=== PATIENT | male | born 1990 | race Caucasian/White ===

== ENCOUNTER 2020-01-13 21:54 | Emergency (ER) | payer OTHER ==
--- NOTE | 2020-01-13 22:26 | EDM.PDOC ---
ED HPI GENERAL MEDICAL PROBLEM - General Chief Complaint: ENT Problem Stated Complaint: HURT EYES WELDING Time Seen by Provider: 01/13/20 22:05 Source of Information: Reports: Patient History Limitations: Reports: No Limitations - History of Present Illness INITIAL COMMENTS - FREE TEXT/NARRATIVE: Patient presented to the ED because of bilateral eye pain. 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 The pain is sharp,8/10,denies any blurry vision. bilateral eyes Pain Score (Numeric/FACES): 4 - Related Data Allergies Allergy/AdvReac Type Severity Reaction Status Date / Time No Known Allergies Allergy Verified 01/13/20 22:12 Home Meds: Home Meds NK [No Known Home Meds] 01/13/20 [History] Social & Family History - Tobacco Use Smoking Status *Q: Former Smoker Used Tobacco, but Quit: Yes Month/Year Tobacco Last Used: 10/2014 - Caffeine Use Caffeine Use: Reports: None Caffeine Use Comment: quit in 2014 - Recreational Drug Use Recreational Drug Use: Yes Drug Use in Last 12 Months: No ED ROS ENT - Review of Systems Review Of Systems: See Below Constitutional: Reports: No Symptoms HEENT: Reports: Eye Pain Respiratory: Reports: No Symptoms Cardiovascular: Reports: No Symptoms GI/Abdominal: Reports: No Symptoms Musculoskeletal: Reports: No Symptoms Skin: Reports: No Symptoms Neurological: Reports: No Symptoms Psychiatric: Reports: No Symptoms ED EXAM, ENT - Physical Exam Exam: See Below Exam Limited By: No Limitations General Appearance: Alert, No Apparent Distress Eye Exam: Right Eye: Other (No FB identified), Bilateral Eye: Conjunctival Injection, PERRL Ears: Normal External Exam, Normal Canal, Hearing Grossly Normal, Normal TMs Nose: Normal Inspection, Normal Mucousa, No Blood Mouth/Throat: Normal Inspection, Normal Gums, Normal Lips Head: Atraumatic, Normocephalic Neck: Normal Inspection, Supple, Non-Tender, Full Range of Motion Respiratory/Chest: No Respiratory Distress, Lungs Clear, Normal Breath Sounds Cardiovascular: Normal Peripheral Pulses, Regular Rate, Rhythm, No Edema, No Gallop, No JVD, No Murmur, No Rub GI/Abdominal: Normal Bowel Sounds Back: Normal Inspection, Full Range of Motion Extremities: Normal Inspection, Normal Range of Motion Course - Vital Signs Text/Narrative:: ice pack tetracaine eye drops instilled in both eyes with significant relief of his pain Last Recorded V/S: Last Vital Signs Temp 36.7 C 01/13/20 22:01 Pulse 77 01/13/20 22:01 Resp 14 01/13/20 22:01 BP 144/94 H 01/13/20 22:01 Pulse Ox 100 01/13/20 22:01 Departure - Departure Time of Disposition: 21:30 Disposition: Home, Self-Care 01 Condition: Good Clinical Impression: Injury, eye - Discharge Information Referrals: PCP,None [Primary Care Provider] - Forms: ED Department Discharge Additional Instructions: please read flashburn injury of theeye do not rub your eues the swelling is causing pain apply ice You can take ibuprofen 800 mg with tylenol 1000 mg every 8 hours as needed for pain apply 1-2 drops of the tetracaine eyedrops to both eyes as needed for pain follow up if symptoms persist Sepsis Event Note - Evaluation Sepsis Screening Result: No Definite Risk - Focused Exam Date Exam was Performed: 01/14/20 Time Exam was Performed: 13:32
== END 2020-01-13 22:40 | disposition home or self-care (01) ==
LOC: FB.ED 21:54
CPT/HCPCS: 99283